=== PATIENT | male | born 2000 | race Caucasian/White ===

== ENCOUNTER 2021-11-09 09:52 | Outpatient (CLI) | payer OTHER, SELFPAY ==
[2021-11-09 11:12] LABS: SARS-CoV-2 Ag Negative (Negative)
== END 2021-11-09 09:53 | disposition home or self-care (01) ==
LOC: CHSLAB 09:56
PROVIDERS: PCP Family Medicine; Visit Provider Family Medicine
DX: Z20.822 Contact with and (suspected) exposure to COVID-19 (principal)
CPT/HCPCS: 87426; C9803

== ENCOUNTER 2021-11-25 10:09 | Outpatient (CLI) | payer OTHER, SELFPAY ==
[2021-11-25 11:04] LABS: SARS-CoV-2 Ag Positive (Negative)
== END 2021-11-25 10:10 | disposition home or self-care (01) ==
LOC: CHSLAB 10:11
PROVIDERS: PCP Family Medicine; Visit Provider Family Medicine
DX: U07.1 COVID-19 (principal)
CPT/HCPCS: 87426; C9803

== ENCOUNTER 2022-08-05 09:27 | Outpatient (CLI) | payer OTHER, SELFPAY ==
--- NOTE | ~2022-08-05 | XR_ITS ---
EXAM: XR shoulder RT min 2V DATE: 08/05/2022 10:11 HISTORY: SUPERIOR/POSTERIOR RIGHT SHOULDER PAIN X 2 WEEKS. . COMPARISON: None available. FINDINGS: Normal mineralization. No fracture or dislocation. No lytic or blastic lesion. Mild wideni ng of the right AC joint, up to 9 mm, remaining joint spaces are maintained. No erosion or periosteal change. Soft tissues within normal limits. IMPRESSION: Mild AC joint widening which may reflect low-grade AC joint injury in the appropriate cli nical context. Otherwise normal right shoulder radiograph findings. Reviewed, dictated and finalized at location K. IMPRESSION: Mild AC joint widening which may reflect low-grade AC joint injury in the appropriate clinical context. Otherwise normal right shoulder radiograph findings.
== END 2022-08-05 09:28 | disposition home or self-care (01) ==
LOC: CHSIMG 09:29
PROVIDERS: PCP Physician Assistant; Visit Provider Physician Assistant
DX: M25.511 Pain in right shoulder (principal)
CPT/HCPCS: 73030